=== PATIENT | male | born 1975 | race Caucasian/White ===

== ENCOUNTER 2024-07-12 17:50 | Emergency (ER) | payer MEDICAID, SELFPAY ==
[2024-07-12 18:04] VITALS: BP 150/93; PULSE 89; RESP 18; TEMP 36.9; O2SAT 95; BMI 30.4
--- NOTE | 2024-07-12 18:16 | XR_ITS ---
Examination: CT soft tissue neck, with intravenous contrast. 2-D coronal reconstructions. 2-D sagittal reconstructions. Date and time of exam :July 12, 2024 at 1936 hrs. Indications: Swollen neck difficulty breathing today. CTDI: vol (mGy):12.2 DLP: (mGycm):424 Technique: 1.25 mm axial sections of the neck of the obtained. Coronal and sagittal reconstructions have been obtained. Intravenous contrast administered 60 cc Isovue-370. Low dose protocols were performed. One or more of the following dose reduction techniques were used; automated exposure control, adjustment of the mA and/or KV according to patient size, use of iterative reconstruction technique. Findings: Symmetrical nasopharynx oropharynx Swollen uvula, axial image 46 Epiglottis is not thickened The larynx appears normal Symmetrical thyroid lobes No prevertebral soft tissue prominence Moderate disc narrowing C5-C6 Bilateral carotid triangle lymph nodes, the largest on the left side 21 mm, on the right side 18 mm Symmetrical submandibular glands Impression: Swollen uvula, axial image 46, clinical correlation advised No impingement upon the oropharyngeal or nasopharyngeal airway Bilateral carotid triangle lymphadenopathy as above
--- NOTE | 2024-07-12 18:19 | PD.EDRME ---
Rapid Medical Screening Exam RME Arrival date/time: 07/12/24 17:50 Chief Complaint: General Adult/Misc Complain Time Seen by Provider: 07/12/24 18:06 Vital signs: Vital Signs Temperature 98.4 F 07/12/24 18:04 Pulse Rate 89 07/12/24 18:04 Respiratory Rate 18 07/12/24 18:04 Blood Pressure 150/93 H 07/12/24 18:04 Pulse Oximetry (%) 95 07/12/24 18:04 Oxygen Delivery Method Room Air 07/12/24 18:04 Vital signs reviewed by provider: Yes RME Narrative: 49 yo M w/ PMHx wiith past medical history of COPD, hypertension, MONZON sent by PCP for evaluation of uvulitis x1 day. Pt endorses walking pneumonia x1 month ago. Denies fever, chills, SOB. Endorses increased drooling.
[2024-07-12] MEDS: DEXAMETHASONE SOD PHOS INJ 10 MG/ML VIAL IM (18:48)
[2024-07-12 18:57] LABS: Basophils # (Auto) 0.1 Thou/mm3 (0.0-0.2); Basophils % (Auto) 1 % (0-2.5); Eosinophils # (Auto) 0.3 Thou/mm3 (0.0-0.5); Eosinophils % (Auto) 2 % (0-10); Hematocrit 45.1 % (41.0-53.0); Immature Granulocytes % (Auto) 0 % (0-0); Immature Granulocytes Auto 0.03 Thou/mm3 (0.00-0.00); Lymphocytes # (Auto) 4.3 Thou/mm3 (1.0-4.8); Lymphocytes % (Auto) 36 % (10-50); Mean Corpuscular HGB Conc 35.5 g/dl (31.0-37.0); Mean Corpuscular Hemoglobin 31.8 pg (25.0-35.0); Mean Corpuscular Volume 90 fL (80-100); Monocytes # (Auto) 0.7 Thou/mm3 (0.0-0.8); Monocytes % (Auto) 6 % (0-12); Neutrophils # (Auto) 6.5 Thou/mm3 (1.8-7.7); Neutrophils % (Auto) 54 % (37-80); Nucleated Red Blood Cell % 0 /100 WBC (0); Platelet Count 247 Thou/mm3 (140-440); RDW Standard Deviation 38.7 fL (35.1-43.9); Red Blood Count 5.03 Miln/mm3 (4.50-5.90); White Blood Count 11.9 Thou/mm3 (3.8-10.6)
[2024-07-12 19:13] LABS: Alanine Aminotransferase 28 U/L (10-49); Albumin, Serum 4.5 gm/dL (3.5-5.0); Albumin/Globulin Ratio 1.5 (1.2-2.2); Alkaline Phosphatase 98 U/L (46-116); Anion Gap 8 (7-16); Aspartate Amino Transferase 22 U/L (0-34); BUN/Creatinine Ratio 8 Ratio (12-20); Bilirubin,Total 0.7 mg/dL (0.3-1.2); Blood Urea Nitrogen 9 mg/dL (9-23); Calcium 9.4 mg/dL (8.3-10.6); Calcium (Corrected) 9.4 mg/dL (8.5-10.1); Carbon Dioxide 29.4 mMol/L (20.0-31.0); Chloride 102 mMol/L (98-107); Creatinine (Component) 1.1 mg/dL (0.6-1.3); Estimated Creatinine Clearance 102.4 mL/min (>60); Glucose 92 mg/dL (74-106); Osmolality,Calculated 276 (275-295); Potassium 4.7 mMol/L (3.4-5.1); Sodium 139 mMol/L (136-145); Total Protein 7.5 gm/dL (5.7-8.2); eGFR > 60 See Note
[2024-07-12 19:54] LABS: Mono Screen Negative (Negative)
[2024-07-12] MEDS: CLINDAMYCIN/NS 600 MG IVPB 600 MG/50 ML BAG 100 MG IV (22:45)
--- NOTE | 2024-07-12 23:07 | EDNOTE_ITS ---
ED General RME/HPI General Chief complaint: General Adult/Misc Complain Stated complaint: VERY SWOLLEN UVULA 3 HRS, SENT BY PCP Time Seen by Provider: 07/12/24 18:06 Arrival date/time: 07/12/24 17:50 Limitations: no limitations RME / HPI RME / HPI narrative: 49 yo M w/ PMHx little past medical history of COPD, hypertension, MONZON sent by PCP for evaluation of uvulitis x1 day. Pt endorses walking pneumonia x1 month ago. Denies fever, chills, SOB. Endorses increased drooling. Exacerbating factors: none Treatments prior to arrival: none Related Data Home Medications ?Medication ?Instructions ?Recorded ?Confirmed bupropion HCl [Wellbutrin XL] PO 05/27/19 05/27/19 dexlansoprazole [Dexilant] PO 05/27/19 05/27/19 gemfibrozil PO 05/27/19 05/27/19 [id number] [Creon] PO 05/27/19 05/27/19 metoprolol succinate PO 05/27/19 05/27/19 simvastatin PO 05/27/19 05/27/19 Previous Rx's ?Medication ?Instructions ?Recorded methylprednisolone 4 mg tablets in 4 mg PO QDAY #21 ta bs 07/12/24 a dose pack (Medrol ([place])) Allergies Allergy/AdvReac Type Severity Reaction Status Date / Time erythromycin base Allergy Severe RASH, Verified 07/12/24 17:54 VOMITING tramadol Allergy Severe RASH,VOMITI Verified 07/12/24 17:54 NG morphine AdvReac Severe CARDIAC Verified 07/12/24 17:54 ARREST Penicillins AdvReac Severe HICCUPS Verified 07/12/24 17:54 naproxen AdvReac Intermediate GI UPSET Verified 07/12/24 17:54 Review of Systems Constitutional Constitutional: Denies chills, Denies fever(s), Denies headache(s) and Reports poor appetite ENT Ears, Nose, Mouth, and Throat: Reports as per HPI, Reports change in voice, Denies dental pain, Denies otalgia, Denies headache(s), Denies lip swelling, Reports neck pain, Reports odynophagia, Reports throat swelling and Denies tongue swelling Cardiovascular Cardiovascular: Denies chest pain, Denies dyspnea, Denies dyspnea on exertion and Denies irregular heart rhythm Respiratory Respiratory: Denies dyspnea, Denies dyspnea on exertion and Denies wheezing Gastrointestinal Gastrointestinal: Denies nausea, Reports odynophagia and Denies vomiting Musculoskeletal Musculoskeletal: Denies back pain and Reports neck pain Integumentary/Breasts Skin/Breast: Denies rash Neurologic Neurologic: Denies headache(s) and Denies seizure-like activity Allergic/Immunologic Allergic/Immunologic: Denies lip swelling, Reports throat swelling, Denies tongue swelling and Denies wheezing Past Medical History Past Medical History CARDIAC: Positive Cardiac Disorders and Hypertension; Negative Congestive Heart Failure RESPIRATORY: Positive Chronic Obstructive Pulmonary Disease (COPD) GASTROINTESTINAL: Positive Gastrointestinal Disorders and Pancreatitis GENITOURINARY: Negative Renal Disease ENDOCRINE: Negative Diabetes Mellitus Type 1 or Diabetes Mellitus Type 2 HEMATOLOGIC: Negative Sickle Cell Disease Surgical History SURGICAL: Positive Angiogram, Tonsillectomy and Adenoidectomy Social History SMOKING STATUS: Former smoker SUBSTANCE USE: does not use ED Exam General Limitations: Present no limitations General appearance: Present alert and in no apparent distress Eye Eye exam: Present normal appearance and EOMI ENT ENT exam: Present TM's normal bilaterally and normal external ear exam Expanded ENT Exam Mouth exam: Present drooling and tongue normal Throat exam: Present tonsillar erythema, tonsillomegaly and other (Adenomatous uvula without exudate.) Neck Neck exam: Present full ROM, trachea midline and lymphadenopathy (Submandibular bilateral.) Chest Chest inspection: Present normal inspection and symmetric chest wall rise Respiratory Respiratory exam: Present normal lung sounds bilaterally; Absent respiratory distress, wheezes or stridor Cardiovascular Cardiovascular exam: Present regular rate and +S1 Abdominal Exam Abdominal exam: Present soft; Absent distention Extremities Exam Extremities exam: Present normal inspection and full ROM Back Exam Back exam: Present normal inspection and full ROM Neurological Exam Neurological exam: Present alert and normal gait Psychiatric Psychiatric exam: Present normal affect Skin Skin exam: Present warm and dry Course Quality Measures none Orders Category Date Time Status CT Screening NOW Care 07/12/24 18:16 Completed Insert IV NOW Care 07/12/24 18:[address] soft tissue neck w con Stat Exams 07/12/24 18:16 Completed Blood Culture (Lab) Stat Lab 07/12/24 18:28 Completed CBC Stat Lab 07/12/24 18:28 Completed CMP [Comprehensive Metabolic Panel] Stat Lab 07/12/24 18:28 Completed [place] Screen Stat Lab 07/12/24 18:28 Completed Clindamycin/Ns 600 mg Ivpb [Cleocin/Ns Ivpb] Med 07/12/24 21:48 Discontinued 600 mg in 50 ml IV X1 Dexamethasone Inj [Decadron Inj] Med 07/12/24 18:16 Discontinued 10 mg IM X1 ONE Vital Signs Vital signs: Vital Signs Temperature 98.4 F 07/12/24 18:04 Pulse Rate 89 07/12/24 18:04 Respiratory Rate 18 07/12/24 18:04 Blood Pressure 150/93 H 07/12/24 18:04 Pulse Oximetry (%) 95 07/12/24 18:04 Oxygen Delivery Method Room Air 07/12/24 18:04 Pulse ox 95% on room air, within normal limits. MDM Patient data External records reviewed:: Other (specify) Clinical information provided by:: none Social determinants that could affect healthcare access:: none Patient has the following chronic illnesses:: Hypertension, hyperlipidemia. How is presenting disease/condition affected by chronic disease/condition?: u neffected by Evaluation data The following diagnostics were reviewed and interpreted by me:: lab results and radiology exam(s) Lab and/or radiology exams considered but not ordered:: Considered not ordered. Interpretation Summary: CT Report: Swollen uvula, axial image 46, clinical correlation advised No impingement upon the oropharyngeal or nasopharyngeal airway Bilateral carotid triangle lymphadenopathy as above Mild leukocytosis, no evidence of endorgan damage or failure, Monospot screening negative. Blood culture negative. Medications Medications considered but not ordered:: Rx ordered. Medication administrations:: Medication Administration History Discontinued Medications Dexamethasone Sodium Phosphate (Dexamethasone Sod Phos Inj 10 Mg/Ml Vial) 10 mg IM X1 ONE Stop: 07/12/24 18:17 Last Admin: 07/12/24 18:48 Dose: 10 mg Documented By: KF Clindamycin/Sodium Chloride (Cleocin/Ns Ivpb) 600 mg in 50 mls @ 100 mls/hr IV X1 ONE Stop: 07/12/24 22:17 Last Admin: 07/12/24 22:45 Dose: 100 mls/hr Documented By: KG Rx given. Consultations Consultation(s) initiated? (list below): No Diagnosis Differential Diagnosis ED Complaint MDM: uvulitis, epiglottitis, sepsis, mono, retropharyngeal abscess, Ludewig's an Most likely diagnosis given after review of the tests above:: uvulitis Admission Indicated Admission indicated?: not indicated Explain why admission is indicated or not indicated:: Patient vital signs remained stable and was given initial dose of clindamycin and steroids in the department. Patient agreeable with plan for discharge and close outpatient follow-up with primary care. Stable at time of discharge. Admission Request Was there a request for admission?: No Disposition Plan Disposition Plan: Discharge Discharge Attestation Discharge Attestation: The patient and all family members were given an opportunity to ask questions and understood the discharge instructions. Discharge instructions specifically effects, indications for sooner follow up or return to the emergency department, and the expected course of current diagnosis. Patient condition: Stable Medical Decision Making MDM Narrative MDM Narrative: 49-year-old male presented with uvulitis from urgent care office. Vital signs stable. Fortunately CT showed no evidence of impingement or abscess. Patient was given dose of clindamycin in the department and dose of steroids. Patient was monitored closely and fortunately showed no evidence of respiratory distress. Ultimately the patient requested to be discharged home with plan for close outpatient follow-up, and given the patient remained stable while in the department he was discharged with antibiotic and course of steroids. Strict return precautions were provided. Patient and were given opportunity to ask questions and vocalized understanding of need to follow-up closely and return to the ED if his symptoms change or worsen. Patient stable at time of discharge. Differential Diagnosis Differential Diagnosis: uvulitis, epiglottitis, sepsis, mono, retropharyngeal abscess, Ludewig's an Lab Data 07/12/24 18:28 07/12/24 18:28 Labs: Lab Results 07/12/24 Range/Units 18:28 WBC 11.9 H (3.8-10.6) Thou/mm3 RBC 5.03 (4.50-5.90) Miln/mm3 Hgb 16.0 (13.5-16.0) g/dL Hct 45.1 (41.0-53.0) % MCV 90 (80-100) fL MCH 31.8 (25.0-35.0) pg MCHC 35.5 (31.0-37.0) g/dl RDW Std Deviation 38.7 (35.1-43.9) fL Plt Count 247 (140-440) Thou/mm3 Neut % (Auto) 54 (37-80) % Lymph % (Auto) 36 (10-50) % [place] % (Auto) 6 (0-12) % Eos % (Auto) 2 (0-10) % Baso % (Auto) 1 (0-2.5) % Neut # (Auto) 6.5 (1.8-7.7) Thou/mm3 Lymph # (Auto) 4.3 (1.0-4.8) Thou/mm3 [place] # (Auto) 0.7 (0.0-0.8) Thou/mm3 Eos # (Auto) 0.3 (0.0-0.5) Thou/mm3 Baso # (Auto) 0.1 (0.0-0.2) Thou/mm3 Immature Gran # (Auto) 0.03 H (0.00-0.00) Thou/mm3 Absolute Nucleated RBC 0.00 (0.00-0.00) Thou/mm3 Immature Gran % 0 (0-0) % Nucleated RBC % 0 (0) /100 WBC Sodium 139 (136-145) mMol/L Potassium 4.7 (3.4-5.1) mMol/L Chloride 102 (98-107) mMol/L Carbon Dioxide 29.4 (20.0-31.0) mMol/L Anion Gap 8 (7-16) BUN 9 (9-23) mg/dL Creatinine 1.1 (0.6-1.3) mg/dL Estim Creat Clear Calc 102.4 (>60) mL/min eGFR > 60 (60 - ) See Note BUN/Creatinine Ratio 8 L (12-20) Ratio Glucose 92 (74-106) mg/dL Calculated Osmolality 276 (275-295) Calcium 9.4 (8.3-10.6) mg/dL Corrected Calcium 9.4 (8.5-10.1) mg/dL Total Bilirubin 0.7 (0.3-1.2) mg/dL AST 22 (0-34) U/L ALT 28 (10-49) U/L Alkaline Phosphatase 98 (46-116) U/L Total Protein 7.5 (5.7-8.2) gm/dL Albumin 4.5 (3.5-5.0) gm/dL Globulin 3.0 (2.3-3.5) gm/dL Albumin/Globulin Ratio 1.5 (1.2-2.2) Monoscreen Negative (Negative) Discharge Plan Plan Patient Disposition: HOME (Self Care) Disposition Comment: stable Prescriptions/Referrals Prescriptions/Med Rec: New methylprednisolone [Medrol ([place])] 4 mg tablets,dose pack 4 mg PO QDAY Qty: 21 0RF No Action bupropion HCl [Wellbutrin XL] PO metoprolol succinate PO dexlansoprazole [Dexilant] PO [id number]-laxuynmu-yuvmfsk [Creon] PO simvastatin PO gemfibrozil PO Referrals: Dottie Bullock MD [Primary Care Provider] - In 1 week Problem List Clinical Impression: Uvulitis Patient/Caregiver Discharge Instructions Education Materials: ED Uvulitis Print Language: Luxembourger Stand Alone Forms: Trish Award Info., Patient Portal Info Letter PA/ELECTRIC TRACK SWITCH MAINTAINER Supervising Physician PA/ELECTRIC TRACK SWITCH MAINTAINER Supervising Physician: Dr. Hung
== END 2024-07-12 23:35 | disposition home or self-care (01) ==
PROVIDERS: Physician Assistant; Emergency Provider Emergency Medicine; PCP Family Medicine
DX: K12.2 Cellulitis and abscess of mouth (principal)
CPT/HCPCS: 36415; 70491; 80053; 85025; 86308; 87040; 96372; 99285; A4649; J1100; Q9967; S0077; J0737

== ENCOUNTER → 2024-09-21 | Outpatient (CLI) | payer MEDICAID, SELFPAY ==
--- NOTE | 2024-09-21 15:30 | XR_ITS ---
Examination: CT chest, without intravenous contrast. Sagittal and coronal 2-D reconstructions. Exam date and time: September 21, 2024 1533 hours INDICATIONS: Diagnosis solitary pulmonary nodule CTDI:vol (mGy) 11.8 DLP: (mGycm) 507 Technique: Multiple 3.0 mm axial sections of the chest to been obtained. Bone and lung density settings are obtained. Sagittal and coronal 2-D reconstructions have been obtained. Low dose protocols were performed. One or more of the following dose reduction techniques were used; automated exposure control, adjustment of the mA and/or KV according to patient size, use of iterative reconstruction technique. Findings: No thoracic aortic aneurysm dilatation Pulmonary artery segments are not enlarged No paratracheal tracheobronchial or bronchopulmonary adenopathy Lung density settings demonstrate at least 18 bilateral pulmonary nodules, subcentimeter No pneumonia or pulmonary edema 10 mm liver cyst Moderate osteopenia IMPRESSION: At least 18 bilateral subcentimeter pulmonary nodules, with this study as baseline recommend 6 month follow-up CT chest to exclude developing pulmonary nodular metastatic disease
== END | disposition home or self-care (01) ==
PROVIDERS: PCP Family Medicine; Referring Provider Family Medicine; Visit Provider Family Medicine
DX: R91.8 Other nonspecific abnormal finding of lung field (principal)
CPT/HCPCS: 71250